=== PATIENT | female | born 1950 | race Caucasian/White ===

== ENCOUNTER 2016-11-20 10:30 | Emergency (ER) | payer OTHER ==
[~2016-11-20] VITALS: Ht 160 cm; Wt 72.8 kg
[2016-11-20 10:43] VITALS: TEMP 36.9; O2SAT 95; Ht 160 cm; Wt 72.8 kg
[2016-11-20] MEDS ORDERED: ISM20 (11:03)
[2016-11-20] MEDS ORDERED: AMLO2.5T PO (11:03)
[2016-11-20] MEDS ORDERED: AMOX250C3 PO (11:03)
[2016-11-20] MEDS ORDERED: LNX25 (11:03)
[2016-11-20] MEDS ORDERED: METO50TA16 PO (11:03)
[2016-11-20] MEDS ORDERED: DABI150C PO (11:03)
[2016-11-20] MEDS ORDERED: FURO-85 PO (11:03)
[2016-11-20] MEDS ORDERED: METH-848 PO (11:03)
[2016-11-20] MEDS ORDERED: [UNRECOGNIZED DRUG - CODE] (11:03)
[2016-11-20 11:17] LABS: BASO % 0.3 %; BASO ABS # 0.04 K/uL (0-0.2); COMPLETE YES; EOS % 1.9 %; HEMATOCRIT 44.2 % (37-47); IG% 0.2 %; LYMPH % 27.7 %; LYMPH ABS # 3.59 K/uL (1.2-3.4); MEAN CELL VOLUME 93.8 fL (80-100); MEAN CORPUSCULAR HEMOGLOBIN 31.6 pg (25-34); MEAN CORPUSCULAR HGB CONC 33.7 g/dl (32-36); MEAN PLATELET VOLUME 10.7 fL (7.4-10.4); MONO % 6.3 %; NEUT % 63.6 %; PLATELET COUNT 375 K/uL (130-400); RED BLOOD COUNT 4.71 M/uL (4.2-5.4); WHITE BLOOD COUNT 12.94 K/uL (4.8-10.8)
[2016-11-20 11:30] LABS: ALT/SGPT 39 U/L (12-78); BLOOD UREA NITROGEN 13 mg/dl (7-18); BUN/CREATININE RATIO 13.9 (10-20); CALCIUM 9.1 mg/dl (8.5-10.1); CARBON DIOXIDE 25 mmol/L (21-32); CHLORIDE 106 mmol/L (98-107); CREATININE 0.92 mg/dl (0.60-1.20); GLUCOSE 121 mg/dl (70-99); SODIUM 139 mmol/L (136-145)
--- NOTE | 2016-11-20 11:38 | DIAGNOSTIC IMAGING REPORT ---
CHEST ONE VIEW PORTABLE CLINICAL HISTORY: Short of breath. Near-syncope. COMPARISON STUDY: No previous studies for comparison. FINDINGS: Lung volumes are normal. No pneumothorax or pleural effusion is present. Patient is mildly rotated. There is borderline cardiomegaly without evidence of pulmonary edema. No consolidation is identified to suggest pneumonia. IMPRESSION: No acute cardiopulmonary findings. Electronically signed by: Frank Smith M.D. 11/20/2016 11:37 AM Dictated Date/Time: 11/20/2016 11:36 AM
[2016-11-20 11:40] LABS: ALB/GLOB RATIO 0.9 (0.9-2); ALKALINE PHOSPHATASE 98 U/L (45-117); AST/SGOT 29 U/L (15-37); CKMB/CK RATIO 1.2 (0-3.0)
--- NOTE | 2016-11-20 12:53 | EMERGENCY ROOM VISIT NOTE ---
ED Visit Note First contact with patient: 10:58 66-year-old female with syncopal episode this morning while in her dentist's office. The patient was fully evaluated by Harvey Padilla PA-C. Please see his note. I also independently evaluated the patient. The patient multiple labs, EKG and imaging performed. The patient was felt safe to return home.
[2016-11-20 13:14] LABS: URINE APPEARANCE CLOUDY (CLEAR); URINE COLOR DK YELLOW; URINE EPITHELIAL CELL AUTO >30 /lpf (0-5); URINE NITRITE NEG (NEG); URINE PH 6.5 (4.5-7.5); URINE SPECIFIC GRAVITY 1.027 (1.000-1.030); UROBILINOGEN NEG (NEG); ZZUR CULT IF INDIC CLEAN CATCH NO
[2016-11-20 13:32] LABS: URINE BILIRUBIN NEG (NEG)
[2016-11-20 14:04] LABS: MANUAL MICROSCOPIC REQUIRED? NO; REVIEW REQ? NO
[2016-11-20 14:05] LABS: INR 1.1 (0.9-1.1); PARTIAL THROMBOPLASTIN RATIO 1.3; PROTHROMBIN TIME (PATIENT) 11.8 SECONDS (9.0-12.0)
[2016-11-20 14:35] VITALS: BP 127/86; PULSE 76; O2SAT 96
--- NOTE | 2016-11-21 07:58 | EMERGENCY ROOM VISIT NOTE ---
ED Visit Note First contact with patient: 10:58 Chief Complaint: Passed out at my dentist office. History of Present Illness: Ms. Pedroza is a 66-year-old white female who is brought into the ED via ambulance accompanied by her complaining of a syncopal episode. Patient reports she's been feeling well over the last few days. Patient reports she was in the dentist office for evaluation of a possible abscess. She reports x-rays were being done and while she was standing she started feeling lightheaded and had a syncopal episode. She does not know if she actually completely passed out or just slightly collapsed. Reports from EMS says that she had a near syncopal episode. No seizure activity was noted. EMS reports when they arrived at the dentist office they reported her blood pressure was in the 70 systolic; they reported on reevaluation of her blood pressure she was never lower than 100 systolic and her blood sugars were 160. Additionally EMS reports patient was stable en route. Currently patient has no complaints and denies recent fevers, chills, sweats and currently is not experiencing any headache, dizziness, lightheadedness, abnormal neurological symptoms, neck pain, back pain, chest pain, shortness of breath, palpitations, abdominal pain, nausea, vomiting, extremity weakness/ numbness/tingling. Review of Systems: As noted above in history of present illness. All body systems were reviewed and found to be negative as noted above. Past Medical History: Atrial fibrillation, hypertension, hyperthyroidism, thyroid nodules. Current Medications: Medications Dose Route/Sig Max Daily Dose Days Date Category Dose Instructions Nasal Moisturizing Greybull (Saline) 0.65 % Spr 2 Sprays NA DAILY 11/20/16 Reported Pradaxa (Dabigatran Etexilate Mesylate) 150 Mg Cap 1 Cap PO BID 90 11/20/16 Reported Methimazole 5 Mg Tab 0.5 Tab PO MWF 11/20/16 Reported 1 tab thursday,,sat,sun Lopressor (Metoprolol Tartrate) 50 Mg Tab 1.5 Tab PO TID 30 11/20/16 Reported Norvasc (Amlodipine Besylate) 2.5 Mg Tab 2.5 Mg PO DAILY 11/20/16 Reported Isosorbide Mononitrate 20 Mg Tab 30 Mg 11/20/16 Reported Lasix (Furosemide) 20 Mg Tab 1 Tab PO DAILY 90 11/20/16 Reported Digoxin 0.25 Mg Tab 11/20/16 Reported Amoxil (Amoxicillin) 250 Mg Cap 1 Cap PO TID 7 11/20/16 Reported Allergies to Medications: Patient denies. Social History: Patient is not employed; she feels safe in her home environment ; she denies tobacco use. Physical Examination: Vital Signs: Date Time Temp Pulse Resp B/P (MAP) Pulse Ox O2 Delivery O2 Flow Rate FiO2 11/20/16 14:35 76 16 127/86 96 Room Air 11/20/16 13:27 89 11/20/16 12:30 83 21 125/72 97 Room Air 11/20/16 11:32 79 18 118/81 98 Room Air 86 139/80 92 122/88 11/20/16 10:43 95 Room Air 11/20/16 10:43 36.9 75 18 126/81 95 Room Air 11/20/16 10:42 89 GENERAL: 66-year-old female in no acute distress, nontoxic-appearing, afebrile and hemodynamically stable. NEUROLOGICAL: Awake, alert and oriented to person, place and time. Answering questions appropriately and following commands. Normal gait. Good hand eye coordination. No focal motor or sensory deficits. Cranial nerves II through XII grossly intact. Good short-term and long-term recall. Negative pronator drift test. Able to spell and count backwards. Normal rapid alternate movements of the hands. Normal heel and test. SKIN: Warm, dry and pink. No soft tissue eruptions or trauma noted. HEENT: Atraumatic and normocephalic. PERRLA. EOMI without nystagmus Sclera white and conjunctiva pink. Tympanic membranes appear normal with normal renal reflex. The right mandible patient has some mild swelling but no erythema related to her dental abscess. Oral cavity moist and pink. Airway is patent. Decaying tooth over the right mandible. Pharynx is nonerythematous or edematous. Speech normal. No lymphadenopathy. Trachea midline. No jugular venous distention. BACK: No tenderness over the bony spine. No CVA tenderness. THORAX: Lungs sounds are clear to auscultation and equal bilaterally with symmetrical chest wall. No wheezing, rales or rhonchi. No crepitus, tenderness , subcutaneous air or deformities noted. HEART: Regular rate and rhythm. No gallops, rubs or murmurs are appreciated. ABDOMEN: Flat, soft and nontender. Positive bowel sounds in all quadrants. No guarding, rigidity or organomegaly. EXTREMITIES: Moves all extremities well on command and with purpose. All distal neurovascular statuses are intact and equal bilaterally. No calf tenderness or cords. ED Course: Patient is assessed as noted above. Patient's medication list was reviewed. Laboratory Testing: Test 11/20/16 10:20 11/20/16 12:39 11/20/16 13:09 Range/Units White Blood Count 12.94 4.8-10.8 K/uL Red Blood Count 4.71 4.2-5.4 M/uL Hemoglobin 14.9 12.0-16.0 g/dL Hematocrit 44.2 37-47 % Mean Corpuscular Volume 93.8 80-100 fL Mean Corpuscular Hemoglobin 31.6 25-34 pg Mean Corpuscular Hemoglobin Concent 33.7 32-36 g/dl Platelet Count 375 130-400 K/uL Mean Platelet Volume 10.7 7.4-10.4 fL Neutrophils (%) (Auto) 63.6 % Lymphocytes (%) (Auto) 27.7 % Monocytes (%) (Auto) 6.3 % Eosinophils (%) (Auto) 1.9 % Basophils (%) (Auto) 0.3 % Neutrophils # (Auto) 8.21 1.4-6.5 K/uL Lymphocytes # (Auto) 3.59 1.2-3.4 K/uL Monocytes # (Auto) 0.82 0.11-0.59 K/uL Eosinophils # (Auto) 0.25 0-0.5 K/uL Basophils # (Auto) 0.04 0-0.2 K/uL RDW Standard Deviation 47.6 36.4-46.3 fL RDW Coefficient of Variation 13.8 11.5-14.5 % Immature Granulocyte % (Auto) 0.2 % Immature Granulocyte # (Auto) 0.03 0.00-0.02 K/uL Sodium Level 139 136-145 mmol/L Potassium Level 4.0 3.5-5.1 mmol/L Chloride Level 106 98-107 mmol/L Carbon Dioxide Level 25 21-32 mmol/L Anion Gap 8.0 3-11 mmol/L Blood Urea Nitrogen 13 7-18 mg/dl Creatinine 0.92 0.60-1.20 mg/dl Est Creatinine Clear Calc Drug Dose 57.5 ml/min Estimated GFR () 75.2 Estimated GFR (Non- 64.9 BUN/Creatinine Ratio 13.9 10-20 Random Glucose 121 70-99 mg/dl Calcium Level 9.1 8.5-10.1 mg/dl Total Bilirubin 1.3 0.2-1 mg/dl Aspartate Amino Transf (AST/SGOT) 29 15-37 U/L Alanine Aminotransferase (ALT/SGPT) 39 12-78 U/L Alkaline Phosphatase 98 45-117 U/L Total Creatine Kinase 89 26-192 U/L Creatine Kinase MB 1.1 0.5-3.6 ng/ml Creatine Kinase MB Ratio 1.2 0-3.0 Troponin I < 0.015 0-0.045 ng/ml Total Protein 7.6 6.4-8.2 gm/dl Albumin 3.6 3.4-5.0 gm/dl Globulin 4.0 2.5-4.0 gm/dl Albumin/Globulin Ratio 0.9 0.9-2 Thyroid Stimulating Hormone (TSH) 6.070 0.300-4.500 uIu/ml Urine Color DK YELLOW Urine Appearance CLOUDY CLEAR Urine pH 6.5 4.5-7.5 Urine Specific Renner 1.027 1.000-1.030 Urine Protein 2+ NEG Urine Glucose (UA) NEG NEG Urine Ketones TRACE NEG Urine Occult Blood 1+ NEG Urine Nitrite NEG NEG Urine Bilirubin NEG NEG Urine Urobilinogen NEG NEG Urine Leukocyte Esterase SMALL NEG Urine WBC (Auto) 5-10 0-5 /hpf Urine RBC (Auto) >30 0-4 /hpf Urine Hyaline Casts (Auto) 5-10 0-5 /lpf Urine Epithelial Cells (Auto) >30 0-5 /lpf Urine Bacteria (Auto) NEG NEG Prothrombin Time 11.8 9.0-12.0 SECONDS Prothromb Time International Ratio 1.1 0.9-1.1 Activated Partial Thromboplast Time 32.9 21.0-31.0 SECONDS Partial Thromboplastin Ratio 1.3 EKG: Was read by myself and reviewed with Dr. Dasilva; shows atrial fibrillation with a controlled ventricular response of 73 bpm. No acute ischemic changes. Medical records were reviewed and no previous EKGs were available for comparison. Orthostatic vital signs are not diagnostic. Chest X-Rays: Were read by myself and the radiologist and shows no acute infiltrates, effusions or pneumothorax. Borderline heart silhouette and no bony abnormalities. Patient was reassessed multiple times to her stay in the emergency department. Patient's case was reviewed with Dr. Dasilva; inability assessed the patient we agreed on diagnostic approach, treatment, disposition and plan. Patient was educated about today's findings and instructed on her treatment plan ; she verbalizes understanding and agreement with this plan. Clinical Impression: Syncope. Decision-Making: Initially my differential diagnosis I considered arrhythmia, vasovagal syncope, syncope from other causes, sepsis and other causes. Disposition: Patient was discharged home in stable condition accompanied by her ; prior to departure she was reassessed and subjectively reported that she was symptom-free. Plan: Patient was encouraged to continue her current medications as prescribed. Patient was encouraged to stay well-hydrated. Patient was encouraged to down immediately for any lightheadedness. Patient was encouraged to contact her family physician and request follow-up care and treatment and reevaluation of today's situation but also review her thyroid testing. Patient was encouraged return the ED for any uncontrolled pain, any additional episodes of syncope, chest pain, shortness of breath, fevers or any new/ concerning symptoms.
== END 2016-11-20 14:38 | disposition home or self-care (01) ==
LOC: EDBD 10:30 → C.EDC 10:31
DX: R55 Syncope and collapse (principal); I48.91 Unspecified atrial fibrillation; I10 Essential (primary) hypertension; E05.90 Thyrotoxicosis, unspecified without thyrotoxic crisis or storm; E04.1 Nontoxic single thyroid nodule; Z79.899 Other long term (current) drug therapy

== ENCOUNTER 2021-05-21 10:14 | Inpatient (IN) ==
[2021-05-21 10:45] LABS: Basophils # (auto) 0.03 K/uL (0-0.2); Basophils % (auto) 0.3 %; Eosinophils # (auto) 0.19 K/uL (0-0.5); Eosinophils % (auto) 1.7 %; Hematocrit (blood only) 42.3 % (37-47); Hemoglobin 14.7 g/dL (12.0-16.0); Immature Granulocytes # (auto) 0.02 K/uL (0.00-0.02); Immature Granulocytes % (auto) 0.2 %; Lymphocytes # (auto) 4.41 K/uL (1.2-3.4); Lymphocytes % (auto) 38.7 %; Mean Corpuscular Hemoglobin 31.7 pg (25-34); Mean Corpuscular Hgb Conc 34.8 g/dL (32-36); Mean Corpuscular Volume 91.4 fL (80-100); Mean Platelet Volume 9.7 fL (7.4-10.4); Monocytes % (auto) 7.9 %; Neutrophils # (auto) 5.84 K/uL (1.4-6.5); Neutrophils % (auto) 51.2 %; Platelet Count 375 K/uL (130-400); RDW Coefficient of Variation 14.6 % (11.5-14.5); RDW Standard Deviation 49.1 fL (36.4-46.3); Red Blood Count 4.63 M/uL (4.2-5.4); White Blood Count 11.39 K/uL (4.8-10.8)
[2021-05-21] MEDS: METOPROLOL TARTRATE 1 MG/ML VIAL IV PRN ×3 (10:45→11:43)
[2021-05-21 11:04] LABS: Alanine Aminotransferase 22 U/L (7-52); Albumin Globulin Ratio 1.3 (0.9-2); Albumin Level 4.1 gm/dl (3.4-5.0); Alkaline Phosphatase 78 U/L (34-104); Anion Gap 8 (3-11); Aspartate Aminotransferase 22 U/L (13-39); BUN Creatinine Ratio 24.4 (10-20); Bilirubin,Total 1.6 mg/dl (0.2-1.0); Blood Urea Nitrogen 20 mg/dl (6-23); Calcium 9.5 mg/dl (8.5-10.1); Carbon Dioxide 28 mmol/L (21-32); Chloride 104 mmol/L (98-107); Est GFR (African American) 83.4 ml/min; Globulin 3.2 gm/dl (2.5-4.0); Glucose 96 mg/dl (70-99(Fasting)); Magnesium 1.8 mg/dl (1.7-2.4); Potassium 3.5 mmol/L (3.5-5.1); Sodium 140 mmol/L (136-145); Total Protein 7.3 gm/dl (6.0-8.3)
[2021-05-21 11:06] LABS: Troponin I < 0.03 ng/ml (0-0.04)
[2021-05-21] MEDS ORDERED: SOTALOL HCL 80 MG TAB PO STA (12:52)
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
--- NOTE | 2021-05-21 13:29 | Electrocardiogram Report ---
Test Reason : Blood Pressure : / mmHG Vent. Rate : 109 BPM Atrial Rate : 127 BPM P-R Int : 000 ms QRS Dur : 088 ms QT Int : 342 ms P-R-T Axes : 000 048 113 degrees QTc Int : 460 ms Atrial fibrillation with rapid ventricular response Nonspecific T wave abnormality Abnormal ECG When compared with ECG of 16-MAY-2021 07:55, Atrial fibrillation has replaced Sinus rhythm Confirmed by Eddi Cherry ([id number]) on 05/21/2021 1:29:22 PM Referred By: ED Confirmed By:Eddi Cherry
[2021-05-21] MEDS ORDERED: ACETAMINOPHEN 325 MG TAB PO PRN (13:55)
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
[2021-05-21] MEDS ORDERED: POTASSIUM CHLORIDE CRTAB 20 MEQ TABCR PO ONE (14:24)
[2021-05-21] MEDS: FUROSEMIDE 40 MG TAB PO SCH (15:15)
[2021-05-21] MEDS: ROSUVASTATIN CALCIUM 20 MG TAB PO SCH (21:49)
[2021-05-21] MEDS: EZETIMIBE 10 MG TABLET PO SCH (21:49)
[2021-05-21] MEDS: SOTALOL HCL 80 MG TAB PO SCH (21:49)
[2021-05-21] MEDS: APIXABAN 5 MG TABLET PO SCH (21:49)
--- NOTE | 2021-05-22 08:29 | Cardiology Progress Note ---
Date of Service May 22, 2021 Assessment & Plan (1) Atrial fibrillation: (2) CAD (coronary artery disease): (3) Hypertension: Plan: Patient is a 71-year-old female with underlying ischemic heart disease and paroxysmal atrial fibrillation poorly tolerated due to elevated rate. Synchronized electrical cardioversion was only briefly successful with return to atrial fibrillation. Atrial flutter today on EKG. QTC mildly prolonged, however could be over estimated due to atrial flutter. Patient is symptomatic with fatigue and dyspnea. Plan: Continue antiarrhythmic therapy initiating sotalol 80 mg twice per day. Continue to hold metoprolol, supplement potassium/magnesium and follow telemetry and serial EKGs. If no spontaneous conversion to sinus rhythm consider repeat synchronized electrical cardioversion 05/23/2021- patient agreeable. Case discussed with Dr. Golden Admission and Anticipated Discharge Date Admission Date: May 21, 2021 Supervising Physician Co-Signing Physician Notes Seen and examined, chart, medications, telemetry reviewed Atrial fibrillation, no symptoms. Plan as above synchronized electrical cardioversion in a.m., supplement potassium today Subjective Chart reviewed. Patient represents in atrial fibrillation having undergone syn chronized electrical cardioversion last week initially successfully. Patient notes approximately 2 days post cardioversion having gone back into atrial fibrillation by sense of tachy-palpitations and irregular heartbeat.Yesterday- started sotalol, she remains in atrial flutter with a heart rate in the 100s. Potassium low normal at 3.5, was supplemented with 40 meq of KCL. Now 3.9. Mag 1.8, renal function stable. Tele: Aflutter 90-110s Upon entrance into the room patient was sitting up in the chair. Notes that she feels very fatigued and "run down". She notes that she gets easily winded when she is in atrial fib. No chest pain. Does note mild tachy-palpitations at times. No dizziness, syncope or near syncope. No orthopnea, PND, or increased lower extremity edema. No fever, chills, cough, hematochezia, melena, or hemoptysis. Review of Systems Review of Systems: All systems reviewed & are unremarkable except as noted in HPI & below Physical Exam Physical Exam: General: No acute distress. A+Ox3. HEENT: Normocephalic. Atraumatic. Conjunctiva and sclera clear. NECK: No carotid bruits. No JVD. Carotid upstrokes are brisk. Heart: RRR. S1 and S2 noted without murmur, rubs, gallops. PMI non displaced. Lungs: Clear to auscultation. No wheezes, rhonchi, rales. Abdomen: Normal bowel sounds. Soft. Nontender. No masses or organomegaly. No abdominal bruits. Extremities: No edema. No clubbing or cyanosis. Pulses: radial=2/4, posterior tibial=2/4, dorsalis pedis = 2/4. NEURO: No focal deficits. PSYCH: Normal. Results & Data ([facility]) Vital Signs (Past 12 Hours) Vital Signs Temp Pulse Pulse Resp BP Pulse Ox 05/22/21 07:29 36.4 C L 113 H 20 119/84 93 05/22/21 07:24 106 H 05/22/21 03:14 36.7 C 122 H 20 112/76 96 05/21/21 23:20 113 H 05/21/21 23:11 36.7 C 112 H 20 126/91 92 Laboratory Results 05/21/21 05/21/21 05/21/21 Range/Units 12:16 10:35 10:35 WBC (4.8-10.8) K/uL RBC (4.2-5.4) M/uL Hgb (12.0-16.0) g/dL Hct (37-47) % MCV (80-100) fL MCH (25-34) pg MCHC (32-36) g/dL RDW Std Deviation (36.4-46.3) fL RDW Coeff of Anatoly (11.5-14.5) % Plt Count (130-400) K/uL MPV (7.4-10.4) fL Immature Gran % (Auto) % Neut % (Auto) % Lymph % (Auto) % [place] % (Auto) % Eos % (Auto) % Baso % (Auto) % Neut # (Auto) (1.4-6.5) K/uL Lymph # (Auto) (1.2-3.4) K/uL [place] # (Auto) (0.11-0.59) K/uL Eos # (Auto) (0-0.5) K/uL Baso # (Auto) (0-0.2) K/uL Immature Gran # (Auto) (0.00-0.02) K/uL Sodium 140 (136-145) mmol/L Potassium 3.5 (3.5-5.1) mmol/L Chloride 104 (98-107) mmol/L Carbon Dioxide 28 (21-32) mmol/L Anion Gap 8 (3-11) BUN 20 (6-23) mg/dl Creatinine 0.82 (0.6-1.2) mg/dl Est Cr Clr Drug Dosing 62.0 ml/min Est GFR ( Amer) 83.4 ml/min Est GFR (Non-Af Amer) 72.0 ml/min BUN/Creatinine Ratio 24.4 H (10-20) Glucose 96 (70-99(Fasting)) mg/dl Calcium 9.5 (8.5-10.1) mg/dl Magnesium 1.8 (1.7-2.4) mg/dl Total Bilirubin 1.6 H (0.2-1.0) mg/dl AST 22 (13-39) U/L ALT 22 (7-52) U/L Alkaline Phosphatase 78 (34-104) U/L Troponin I < 0.03 (0-0.04) ng/ml Total Protein 7.3 (6.0-8.3) gm/dl Albumin 4.1 (3.4-5.0) gm/dl Globulin 3.2 (2.5-4.0) gm/dl Albumin/Globulin Ratio 1.3 (0.9-2) TSH 0.968 (0.300-4.500) uIu/ml SARS-CoV-2, RNA, NAAT NEGATIVE (NEGATIVE) 05/21/21 Range/Units 10:35 WBC 11.39 H (4.8-10.8) K/uL RBC 4.63 (4.2-5.4) M/uL Hgb 14.7 (12.0-16.0) g/dL Hct 42.3 (37-47) % MCV 91.4 (80-100) fL MCH 31.7 (25-34) pg MCHC 34.8 (32-36) g/dL RDW Std Deviation 49.1 H (36.4-46.3) fL RDW Coeff of Anatoly 14.6 H (11.5-14.5) % Plt Count 375 (130-400) K/uL MPV 9.7 (7.4-10.4) fL Immature Gran % (Auto) 0.2 % Neut % (Auto) 51.2 % Lymph % (Auto) 38.7 % [place] % (Auto) 7.9 % Eos % (Auto) 1.7 % Baso % (Auto) 0.3 % Neut # (Auto) 5.84 (1.4-6.5) K/uL Lymph # (Auto) 4.41 H (1.2-3.4) K/uL [place] # (Auto) 0.90 H (0.11-0.59) K/uL Eos # (Auto) 0.19 (0-0.5) K/uL Baso # (Auto) 0.03 (0-0.2) K/uL Immature Gran # (Auto) 0.02 (0.00-0.02) K/uL Sodium (136-145) mmol/L Potassium (3.5-5.1) mmol/L Chloride (98-107) mmol/L Carbon Dioxide (21-32) mmol/L Anion Gap (3-11) BUN (6-23) mg/dl Creatinine (0.6-1.2) mg/dl Est Cr Clr Drug Dosing ml/min Est GFR ( Amer) ml/min Est GFR (Non-Af Amer) ml/min BUN/Creatinine Ratio (10-20) Glucose (70-99(Fasting)) mg/dl Calcium (8.5-10.1) mg/dl Magnesium (1.7-2.4) mg/dl Total Bilirubin (0.2-1.0) mg/dl AST (13-39) U/L ALT (7-52) U/L Alkaline Phosphatase (34-104) U/L Troponin I (0-0.04) ng/ml Total Protein (6.0-8.3) gm/dl Albumin (3.4-5.0) gm/dl Globulin (2.5-4.0) gm/dl Albumin/Globulin Ratio (0.9-2) TSH (0.300-4.500) uIu/ml SARS-CoV-2, RNA, NAAT (NEGATIVE) Diagnostic Findings Echo at [facility] 02/2021 LVEF 60-64% mild LVH LA mod enlarged Mild MR and TR
[2021-05-22] MEDS ORDERED: MAGNESIUM OXIDE 400 MG TAB PO ONE (08:32)
[2021-05-22] MEDS ORDERED: LOSARTAN POTASSIUM 25 MG TAB PO SCH (09:00)
[2021-05-22] MEDS: APIXABAN 5 MG TABLET PO SCH ×2 (09:13→19:56)
[2021-05-22] MEDS: FUROSEMIDE 40 MG TAB PO SCH (09:13)
[2021-05-22] MEDS: SOTALOL HCL 80 MG TAB PO SCH ×2 (09:13→19:57)
[2021-05-22] MEDS: PANTOprazole 40 MG TAB PO SCH (09:13)
[2021-05-22] MEDS: ASPIRIN 81 MG ECTAB PO SCH (09:14)
[2021-05-22 09:35] LABS: BUN Creatinine Ratio 27.2 (10-20); Calcium 8.8 mg/dl (8.5-10.1); Creatinine Clr Calc Pharmacy 62.5 ml/min; Est GFR (African American) 84.7 ml/min; Est GFR (Non-African American) 73.1 ml/min; Potassium 3.9 mmol/L (3.5-5.1)
[2021-05-22] MEDS ORDERED: POTASSIUM CHLORIDE CRTAB 20 MEQ TABCR PO ONE (13:49)
--- NOTE | 2021-05-22 15:46 | Electrocardiogram Report ---
Test Reason : Blood Pressure : / mmHG Vent. Rate : 107 BPM Atrial Rate : 288 BPM P-R Int : 000 ms QRS Dur : 080 ms QT Int : 384 ms P-R-T Axes : 000 046 131 degrees QTc Int : 512 ms Atrial fibrillation Nonspecific T wave abnormality Abnormal ECG When compared with ECG of 21-MAY-2021 15:00, (unconfirmed) Nonspecific T wave abnormality has replaced inverted T waves in Lateral leads Confirmed by Eddi Cherry ([id number]) on 05/22/2021 3:46:07 PM Referred By: REFERRED SELF Confirmed By:Eddi Cherry
--- NOTE | 2021-05-22 15:46 | Electrocardiogram Report ---
Test Reason : Blood Pressure : / mmHG Vent. Rate : 103 BPM Atrial Rate : 357 BPM P-R Int : 000 ms QRS Dur : 090 ms QT Int : 364 ms P-R-T Axes : 000 050 162 degrees QTc Int : 476 ms Atrial fibrillation with rapid ventricular response Abnormal ECG When compared with ECG of 21-MAY-2021 10:26, T wave inversion now evident in Lateral leads Confirmed by Eddi Cherry ([id number]) on 05/22/2021 3:46:36 PM Referred By: REFERRED SELF Confirmed By:Eddi Cherry
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
--- NOTE | 2021-05-22 16:03 | Hospitalist Progress Note ---
Date of Service May 22, 2021 Assessment & Plan (1) Atrial fibrillation: Plan: Recurrent atrial fibrillation Patient with history of atrial fibrillation s/p cardioversion on 05/16. Patient previously on digoxin which was discontinued post cardioversion and metoprolol reduced from 100 mg BID to 50mg BID. Presents today with 4 days of anxiety and jitteriness. Found to be in atrial fibrillation with heart rates in the low 100. Electrolytes and TSH acceptable. Evaluated by cardiology, recommending sotalol initiation. Start sotalol 80 mg BID Continue Eliquis EKG 2 hours after first sotalol dose and daily Heart rate has been around 100 210 and in a flutter without any symptom We will continue to monitor-monitor electrolytes as well (2) CAD (coronary artery disease): Plan: Appears stable Continue ASA and statin, holding beta-aisha for now while initiating sotalol (3) Hypertension: Plan: BP controlled, continue losartan and furosemide Blood pressure remains stable at lower end (4) DVT prophylaxis: Plan: On Eliquis Admission and Anticipated Discharge Date Admission Date: May 21, 2021 Subjective 05/22/2021 Patient was seen and examined in telemetry unit She has been feeling much better and denies any symptoms Denies any palpitation, chest pain or shortness of breath Review of Systems Review of Systems: All systems reviewed and are unremarkable except as noted below Respiratory: No shortness of breath at rest Cardiovascular: Additional Comments: No palpitation and no chest pain Physical Exam Physical Exam: Sitting on a chair without any acute distress Constitutional: well developed, well nourished and + obese; not ill appearing Eyes: PERRL, conjunctivae normal, anicteric sclerae ENMT: external ear and nose normal, oropharynx normal Neck: trachea midline, no thyromegaly Respiratory: no respiratory distress Auscultation: lungs clear to auscultation bilaterally Cardiovascular: Rate/Rhythm: + irregularly irregular Heart Sounds: normal S1 and normal S2; no murmur Extremities: + edema (Trace edema bilaterally) Gastrointestinal (Abdomen): Inspection/Auscultation: normal bowel sounds; abdomen not distended Percussion/Palpation: abdomen soft; abdomen nontender Musculoskeletal: No acute arthritis in any joint Neurologic: Alert, awake and oriented x3. No focal sensory or no motor deficit appreciated Results & Data Results & Data ([facility]) Vital Signs (Past 12 Hours) Vital Signs Temp Pulse Pulse Resp BP Pulse Ox 05/22/21 15:46 36.5 C 110 H 17 98/68 L 95 05/22/21 11:26 94/65 L 05/22/21 11:22 36.6 C 90 18 89/56 L 92 05/22/21 07:29 36.4 C L 113 H 20 119/84 93 05/22/21 07:24 106 H Laboratory Results BMP 05/22/21 08:52 Sodium 139 Potassium 3.9 Chloride 105 Carbon Dioxide 26 BUN 22 Creatinine 0.81 Glucose 166 H Calcium 8.8 Medications Administered Current Inpatient Medications Acetaminophen (Acetaminophen 325 Mg Tab) 650 mg PO Q4H PRN PRN Reason: Pain or Fever Stop: 06/20/21 13:54 Apixaban (Apixaban 5 Mg Tablet) 5 mg PO BID [facility] Stop: 06/20/21 20:59 Last Admin: 05/22/21 09:13 Dose: 5 mg Documented by: Aspirin (A[facility] 81 Mg Ectab) [facility] Stop: 06/21/21 08:59 Last Admin: 05/22/21 09:14 Dose: 81 mg Documented by: Ezetimibe (Ezetimibe 10 Mg Tablet) 10 mg PO QPM [facility] Stop: 06/20/21 20:59 Last Admin: 05/21/21 21:49 Dose: 10 mg Documented by: Furosemide (Furosemide 40 Mg Tab) 40 mg PO QAM [facility] Stop: 06/20/21 14:29 Last Admin: 05/22/21 09:13 Dose: 40 mg Documented by: Losartan Potassium (Losartan Potassium 25 Mg Tab) [facility] Stop: 06/21/21 08:59 Last Admin: 05/22/21 09:14 Dose: 25 mg Documented by: Pantoprazole Sodium (Pantoprazole 40 Mg Tab) [facility] Stop: 06/21/21 08:59 Last Admin: 05/22/21 09:13 Dose: 40 mg Documented by: Rosuvastatin Calcium (Rosuvastatin Calcium 20 Mg Tab) 20 mg PO [facility] Stop: 06/20/21 20:59 Last Admin: 05/21/21 21:49 Dose: 20 mg Documented by: Sotalol HCl (Sotalol Hcl 80 Mg Tab) 80 mg PO BID [facility] Stop: 06/20/21 20:59 Last Admin: 05/22/21 09:13 Dose: 80 mg Documented by:
[2021-05-22] MEDS: EZETIMIBE 10 MG TABLET PO SCH (19:56)
[2021-05-22] MEDS: ROSUVASTATIN CALCIUM 20 MG TAB PO SCH (19:56)
[2021-05-23 06:19] LABS: BUN Creatinine Ratio 30.8 (10-20); Calcium 9.4 mg/dl (8.5-10.1); Est GFR (African American) 88.6 ml/min; Est GFR (Non-African American) 76.5 ml/min; Phosphorus 3.6 mg/dl (2.5-4.9); Potassium 4.1 mmol/L (3.5-5.1)
--- NOTE | 2021-05-23 07:29 | Cardioversion ---
Date of Service May 23, 2021 Electrical Cardioversion Rpt Electrical Cardioversion Report Patient was seen and examined. Procedure and risks of synchronized electrical crdioversion explained in detail, informed consent obtained. After formal TIMEOUT, patient was sedated via anesthesia consult with continous HR, BP O2 and endtidal Co2 monitoring. Single 200J biphasic synchronized cardioversion performed with successful conversion to sinus. Patient aroused having tolerated well. EKG NSR at 68 bpm, QTc 482
--- NOTE | 2021-05-23 07:31 | Anesthesiology Progress Note ---
Date of Service May 23, 2021 Anesthesia Post Procedure Vital Signs Vital Signs: Temp Pulse Pulse Resp BP Pulse Ox 05/23/21 07:17 104 H 18 133/96 95 05/23/21 06:57 36.4 C L 107 H 19 120/84 96 05/23/21 03:03 36.6 C 100 H 14 107/76 96 05/22/21 23:29 36.8 C 100 H 18 122/87 951 H 05/22/21 23:04 113 H 05/22/21 19:08 36.7 C 114 H 20 94/65 L 96 05/22/21 15:46 36.5 C 110 H 17 98/68 L 95 05/22/21 11:26 94/65 L 05/22/21 11:22 36.6 C 90 18 89/56 L 92 Transfer of Care Handoff Completed per policy Notes Mental Status: alert / awake / arousable Patient Amnestic to Procedure: Yes Nausea / Vomiting: adequately controlled Pain: adequately controlled Airway Patency, RR, SpO2: stable & adequate BP & HR: stable & adequate Hydration State: stable & adequate Anesthetic Complications: no major complications apparent
--- NOTE | 2021-05-23 07:58 | Cardiology Progress Note ---
Date of Service May 23, 2021 Assessment & Plan (1) Atrial fibrillation: (2) CAD (coronary artery disease): (3) Hypertension: Plan: Patient is a 71-year-old female with underlying ischemic heart disease and paroxysmal atrial fibrillation poorly tolerated due to elevated rate. Synchronized electrical cardioversion was only briefly successful with return to atrial fibrillation. Atrial flutter today on EKG. QTC mildly prolonged, however could be over estimated due to atrial flutter. Patient was symptomatic with fatigue and dyspnea. Plan: S/p successful DCCV to NSR this am with stable QTc. Continue antiarrhythmic therapy with sotalol 80 mg twice per day. Continue Eliquis 5 mg BID. Continue to hold metoprolol, supplement potassium/magnesium and follow telemetry and serial EKGs. Plans for discharge tomorrow. Anticipate outpatient cardiology follow up in about 4 weeks. Case discussed with Dr. Golden. Admission and Anticipated Discharge Date Admission Date: May 21, 2021 Supervising Physician Co-Signing Physician Notes Patient seen and examined both prior to and after synchronized electrical cardio version. Had successful return to sinus rhythm no significant prolongation of QT interval. Continue sotalol 80 mg twice per day and anticoagulation with Eliquis. Discontinue metoprolol We will resume losartan Hold furosemide today Telemetry until tomorrow morning with anticipated discharge in a.m. if EKG stable Subjective Chart reviewed. Patient represents in atrial fibrillation having undergone synchronized electrical cardioversion last week initially successfully. Patient notes approximately 2 days post cardioversion having gone back into atrial fibrillation by sense of tachy-palpitations and irregular heartbeat.Yesterday- started sotalol, she remained in atrial flutter with a heart rate in the 100s. Underwent DCCV this am with Dr. Golden. x1 200 j biphasic synchronized cardioversion performed with successful cardioversion to NSR. Post EKG showed NSR 68 bpm, QTc 482 ms. Potassium normal at 4.1. Mag 2.0 Tele: SR 60-70s Upon entrance into the room patient was resting comfortably in bed. Notes some fatigue but does feel improved. No chest pain, shortness of breath or palpitations. No dizziness, syncope or near syncope. No orthopnea, PND, or increased lower extremity edema. No fever, chills, cough, hematochezia, melena, or hemoptysis. Review of Systems Review of Systems: All systems reviewed & are unremarkable except as noted in HPI & below Physical Exam Physical Exam: General: No acute distress. A+Ox3. HEENT: Normocephalic. Atraumatic. Conjunctiva and sclera clear. NECK: No carotid bruits. No JVD. Carotid upstrokes are brisk. Heart: RRR. S1 and S2 noted without murmur, rubs, gallops. PMI non displaced. Lungs: Clear to auscultation. No wheezes, rhonchi, rales. Abdomen: Normal bowel sounds. Soft. Nontender. No masses or organomegaly. No abdominal bruits. Extremities: No edema. No clubbing or cyanosis. Pulses: radial=2/4, posterior tibial=2/4, dorsalis pedis = 2/4. NEURO: No focal deficits. PSYCH: Normal. Results & Data ([facility]) Vital Signs (Past 12 Hours) Vital Signs Temp Pulse Pulse Resp BP Pulse Ox 05/23/21 07:40 69 18 92/67 L 93 05/23/21 07:25 68 18 101/58 L 92 05/23/21 07:17 104 H 18 133/96 95 05/23/21 06:57 36.4 C L 107 H 19 120/84 96 05/23/21 03:03 36.6 C 100 H 14 107/76 96 05/22/21 23:29 36.8 C 100 H 18 122/87 951 H 05/22/21 23:04 113 H Laboratory Results 05/23/21 Range/Units 05:32 Sodium 140 (136-145) mmol/L Potassium 4.1 (3.5-5.1) mmol/L Chloride 108 H (98-107) mmol/L Carbon Dioxide 25 (21-32) mmol/L Anion Gap 7 (3-11) BUN 24 H (6-23) mg/dl Creatinine 0.78 (0.6-1.2) mg/dl Est Cr Clr Drug Dosing 65.0 ml/min Est GFR ( Amer) 88.6 ml/min Est GFR (Non-Af Amer) 76.5 ml/min BUN/Creatinine Ratio 30.8 H (10-20) Glucose 105 H (70-99(Fasting)) mg/dl Calcium 9.4 (8.5-10.1) mg/dl Phosphorus 3.6 (2.5-4.9) mg/dl Magnesium 2.0 (1.7-2.4) mg/dl
[2021-05-23] MEDS: APIXABAN 5 MG TABLET PO SCH ×2 (08:31→20:36)
[2021-05-23] MEDS: ASPIRIN 81 MG ECTAB PO SCH (08:31)
[2021-05-23] MEDS: PANTOprazole 40 MG TAB PO SCH (08:31)
[2021-05-23] MEDS: SOTALOL HCL 80 MG TAB PO SCH ×2 (09:23→20:35)
--- NOTE | 2021-05-23 16:13 | Hospitalist Progress Note ---
Date of Service May 23, 2021 Assessment & Plan (1) Atrial fibrillation: Plan: Recurrent atrial fibrillation Patient with history of atrial fibrillation s/p cardioversion on 05/16. Patient previously on digoxin which was discontinued post cardioversion and metoprolol reduced from 100 mg BID to 50mg BID. Presents today with 4 days of anxiety and jitteriness. Found to be in atrial fibrillation with heart rates in the low 100. Electrolytes and TSH acceptable. Evaluated by cardiology, recommending sotalol initiation. Start sotalol 80 mg BID Continue Eliquis EKG 2 hours after first sotalol dose and daily Heart rate has been around 100- 210 and in a flutter without any symptom We will continue to monitor-monitor electrolytes as well Status post cardioversion Remains in sinus rhythm at 70/min Continue sotalol likely home tomorrow (2) CAD (coronary artery disease): Plan: Appears stable Continue ASA and statin, holding beta-aisha for now while initiating sotalol (3) Hypertension: Plan: BP controlled, continue losartan and furosemide Blood pressure remains stable at lower end (4) DVT prophylaxis: Plan: On Eliquis Admission and Anticipated Discharge Date Admission Date: May 21, 2021 Subjective 05/22/2021 Patient was seen and examined in telemetry unit She has been feeling much better and denies any symptoms Denies any palpitation, chest pain or shortness of breath 05/23/2021 The patient was seen and examined in telemetry unit She is a status post cardioversion on sotalol Heart rate is controlled at 70/min and in sinus rhythm Denies any symptoms Review of Systems Review of Systems: All systems reviewed and are unremarkable except as noted below Physical Exam Physical Exam: Sitting on a chair without any acute distress Constitutional: well developed, well nourished and + obese; not ill appearing Eyes: PERRL, conjunctivae normal, anicteric sclerae ENMT: external ear and nose normal, oropharynx normal Neck: trachea midline, no thyromegaly Respiratory: no respiratory distress Auscultation: lungs clear to auscultation bilaterally Cardiovascular: Rate/Rhythm: + irregularly irregular Heart Sounds: normal S1 and normal S2; no murmur Extremities: + edema (Trace edema bilaterally) Gastrointestinal (Abdomen): Inspection/Auscultation: normal bowel sounds; abdomen not distended Percussion/Palpation: abdomen soft; abdomen nontender Musculoskeletal: No acute arthritis in any joint Neurologic: Alert, awake and oriented x3. No focal sensory or no motor defi cit appreciated. Results & Data Results & Data ([facility]) Vital Signs (Past 12 Hours) Vital Signs Temp Pulse Pulse Resp BP Pulse Ox 05/23/21 15:10 36.7 C 70 18 107/71 96 05/23/21 14:54 64 05/23/21 11:02 36.8 C 67 19 93/56 L 94 05/23/21 10:07 36.4 C L 74 20 104/69 95 05/23/21 09:37 37.0 C 71 22 109/71 93 05/23/21 09:07 76 120/74 93 05/23/21 08:52 75 132/78 92 05/23/21 08:37 36.2 C L 68 107/67 93 05/23/21 08:22 36.4 C L 68 22 125/79 93 05/23/21 07:55 66 18 106/65 93 05/23/21 07:40 69 18 92/67 L 93 05/23/21 07:25 68 18 101/58 L 92 05/23/21 07:17 104 H 18 133/96 95 05/23/21 06:57 36.4 C L 107 H 19 120/84 96 05/23/21 06:20 95 H Laboratory Results [facility] 05/23/21 05:32 Sodium 140 Potassium 4.1 Chloride 108 H Carbon Dioxide 25 BUN 24 H Creatinine 0.78 Glucose 105 H Calcium 9.4 Medications Administered Current Inpatient Medications Acetaminophen (Acetaminophen 325 Mg Tab) 650 mg PO Q4H PRN PRN Reason: Pain or Fever Stop: 06/20/21 13:54 Apixaban (Apixaban 5 Mg Tablet) 5 mg PO BID [facility] Stop: 06/20/21 20:59 Last Admin: 05/23/21 08:31 Dose: 5 mg Documented by: Aspirin (Aspirin 81 Mg Ectab) 81 mg PO QAM [facility] Stop: 06/21/21 08:59 Last Admin: 05/23/21 08:31 Dose: 81 mg Documented by: Ezetimibe (Ezetimibe 10 Mg Tablet) 10 mg PO QPM [facility] Stop: 06/20/21 20:59 Last Admin: 05/22/21 19:56 Dose: 10 mg Documented by: Furosemide (Furosemide 40 Mg Tab) 40 mg PO QAM [facility] Stop: 06/20/21 14:29 Last Admin: 05/22/21 09:13 Dose: 40 mg Documented by: Losartan Potassium (Losartan Potassium 25 Mg Tab) 25 mg PO QAM [facility] Stop: 06/21/21 08:59 Last Admin: 05/22/21 09:14 Dose: 25 mg Documented by: Pantoprazole Sodium (Pantoprazole 40 Mg Tab) 40 mg PO QAM [facility] Stop: 06/21/21 08:59 Last Admin: 05/23/21 08:31 Dose: 40 mg Documented by: Rosuvastatin Calcium (Rosuvastatin Calcium 20 Mg Tab) 20 mg PO HS [facility] Stop: 06/20/21 20:59 Last Admin: 05/22/21 19:56 Dose: 20 mg Documented by: Sotalol HCl (Sotalol Hcl 80 Mg Tab) 80 mg PO BID [facility] Stop: 06/20/21 20:59 Last Admin: 05/23/21 09:23 Dose: 80 mg Documented by:
[2021-05-23] MEDS: ROSUVASTATIN CALCIUM 20 MG TAB PO SCH (20:35)
[2021-05-23] MEDS: EZETIMIBE 10 MG TABLET PO SCH (20:35)
--- NOTE | 2021-05-24 05:58 | Electrocardiogram Report ---
Test Reason : Blood Pressure : / mmHG Vent. Rate : 096 BPM Atrial Rate : 267 BPM P-R Int : 000 ms QRS Dur : 088 ms QT Int : 374 ms P-R-T Axes : 000 050 089 degrees QTc Int : 472 ms Atrial fibrillation Nonspecific T wave abnormality Abnormal ECG When compared with ECG of 22-MAY-2021 05:27, No significant change Confirmed by Luis Okeefe ([id number]) on 05/24/2021 5:58:25 AM Referred By: REFERRED SELF Confirmed By:Luis Okeefe
--- NOTE | 2021-05-24 06:01 | Electrocardiogram Report ---
Test Reason : Blood Pressure : / mmHG Vent. Rate : 068 BPM Atrial Rate : 068 BPM P-R Int : 198 ms QRS Dur : 080 ms QT Int : 440 ms P-R-T Axes : 059 036 096 degrees QTc Int : 468 ms Normal sinus rhythm Nonspecific T wave abnormality Abnormal ECG When compared with ECG of 23-MAY-2021 06:02, Sinus rhythm has replaced Atrial fibrillation Confirmed by Luis Okeefe ([id number]) on 05/24/2021 6:01:10 AM Referred By: REFERRED SELF Confirmed By:Luis Okeefe
[2021-05-24 07:37] LABS: BUN Creatinine Ratio 30.4 (10-20); Calcium 8.5 mg/dl (8.5-10.1); Creatinine Clr Calc Pharmacy 64.9 ml/min; Est GFR (African American) 87.3 ml/min; Est GFR (Non-African American) 75.3 ml/min; Magnesium 1.9 mg/dl (1.7-2.4); Potassium 4.1 mmol/L (3.5-5.1)
[2021-05-24] MEDS: APIXABAN 5 MG TABLET PO SCH (08:38)
[2021-05-24] MEDS: ASPIRIN 81 MG ECTAB PO SCH (08:38)
[2021-05-24] MEDS: SOTALOL HCL 80 MG TAB PO SCH (08:38)
[2021-05-24] MEDS: PANTOprazole 40 MG TAB PO SCH (08:38)
--- NOTE | 2021-05-24 12:13 | Cardiology Progress Note ---
Date of Service May 24, 2021 Assessment & Plan (1) Atrial fibrillation: (2) CAD (coronary artery disease): (3) Hypertension: Plan: Patient is a 71-year-old female with underlying ischemic heart disease and paroxysmal atrial fibrillation poorly tolerated due to elevated rate. Synchronized electrical cardioversion was only briefly successful with return to atrial fibrillation. Impression/plan: Atrial fibrillation, paroxysmal with rapid ventricular response s/p successful DCCV to NSR on antiarrhythmic therapy with sotalol 80 mg twice per day. No further arrhythmias Stable for discharge today resume losartan, discontinue metoprolol. Furosemide 40 mg p.o. 2 days/week continue all other prehospital medications as ordered Anticipate outpatient cardiology follow up in about 4 weeks. Admission and Anticipated Discharge Date Admission Date: May 21, 2021 Subjective Patient was seen and examined, chart, medications, telemetry reviewed. No complaints or issues overnight. No arrhythmias on telemetry. No dizziness or lightheadedness. Review of Systems Review of Systems: All systems reviewed & are unremarkable except as noted in Subjective Physical Exam Constitutional: WD/WN, vitals as above Eyes: PERRL, conjunctivae normal, anicteric sclerae ENMT: external ear and nose normal, oropharynx normal Neck: trachea midline, no thyromegaly Respiratory: normal respiratory effort, lungs clear to auscultation Cardiovascular: Rate/Rhythm: regular rate and regular rhythm Heart Sounds: normal S1 and normal S2; no gallop and no murmur Palpation: normal PMI Vessels: normal carotid upstroke and radial pulses present; no JVD and no carotid bruit Extremities: no edema Gastrointestinal (Abdomen): normal bowel sounds, soft, nontender, no hepatosplenomegaly Musculoskeletal: no cyanosis or clubbing, extremities motor strength 5/5 Skin: no rashes, warm and dry Neurologic: PERRL, EOMI, accommodation nl, no face palsy, no dysarthria Psychiatric: A+Ox3, euthymic affect Results & Data ([facility]) Vital Signs (Past 12 Hours) Vital Signs Temp Pulse Pulse Resp BP BP Pulse Ox 05/24/21 11:54 36.7 C 61 16 123/82 96 05/24/21 09:45 36.8 C 60 16 118/81 95 05/24/21 09:15 36.8 C 67 22 112/70 94 05/24/21 08:46 70 05/24/21 08:45 36.8 C 68 153/104 H 95 05/24/21 08:30 36.8 C 67 134/95 05/24/21 08:15 36.6 C 68 138/90 95 05/24/21 07:43 36.4 C L 15 140/87 97 05/24/21 04:05 36.5 C 70 18 110/72 94 Laboratory Results Laboratory Results - last 24 hr 05/24/21 06:56 Sodium 139 Potassium 4.1 Chloride 107 Carbon Dioxide 27 Anion Gap 5 BUN 24 H Creatinine 0.79 Est Cr Clr Drug Dosing 64.9 Est GFR ( Amer) 87.3 Est GFR (Non-Af Amer) 75.3 BUN/Creatinine Ratio 30.4 H Glucose 94 Calcium 8.5 Magnesium 1.9 ECG Additional Comments: 24-MAY-2021 08:33:11 [facility]-PC[facility] ROUTINE RETRIEVAL Normal sinus rhythm Nonspecific T wave abnormality Prolonged QT, QT corrected 489. Abnormal ECG When compared with ECG of 23-MAY-2021 07:19, No significant change was found
--- NOTE | 2021-05-24 14:17 | Hospitalist Progress Note ---
Date of Service May 24, 2021 Assessment & Plan (1) Atrial fibrillation: Plan: Recurrent atrial fibrillation Patient with history of atrial fibrillation s/p cardioversion on 05/16. Patient previously on digoxin which was discontinued post cardioversion and metoprolol reduced from 100 mg BID to 50mg BID. Presents today with 4 days of anxiety and jitteriness. Found to be in atrial fibrillation with heart rates in the low 100. Electrolytes and TSH acceptable. Evaluated by cardiology, recommending sotalol initiation. Start sotalol 80 mg BID Continue Eliquis EKG 2 hours after first sotalol dose and daily Heart rate has been around 100- 210 and in a flutter without any symptom We will continue to monitor-monitor electrolytes as well Status post cardioversion Remains in sinus rhythm at 70/min Remains in sinus rhythm with controlled rate Will be discharged home this afternoon Chronic diastolic heart failure controlled with Lasix Lasix doses have been changed to 2 times per week (2) CAD (coronary artery disease): Plan: Appears stable Continue ASA and statin, holding beta-aisha for now while initiating sotalol (3) Hypertension: Plan: BP controlled, continue losartan and furosemide Blood pressure remains stable at lower end Blood pressure is controlled (4) DVT prophylaxis: Plan: On Eliquis Admission and Anticipated Discharge Date Admission Date: May 21, 2021 Subjective 05/22/2021 Patient was seen and examined in telemetry unit She has been feeling much better and denies any symptoms Denies any palpitation, chest pain or shortness of breath 05/23/2021 The patient was seen and examined in telemetry unit She is a status post cardioversion on sotalol Heart rate is controlled at 70/min and in sinus rhythm Denies any symptoms 05/24/2021 The patient was seen and examined in telemetry unit She has been stable and her heart rate and rhythm remain controlled with sotalol She will be discharged home this afternoon Review of Systems Review of Systems: All systems reviewed and are unremarkable except as noted below Respiratory: No shortness of breath at rest Cardiovascular: Additional Comments: No palpitation and no chest pain Physical Exam Physical Exam: Sitting on a chair without any acute distress Constitutional: well developed, well nourished and + obese; not ill appearing Eyes: PERRL, conjunctivae normal, anicteric sclerae ENMT: external ear and nose normal, oropharynx normal Neck: trachea midline, no thyromegaly Respiratory: no respiratory distress Auscultation: lungs clear to auscultation bilaterally Cardiovascular: Rate/Rhythm: + irregularly irregular Heart Sounds: normal S1 and normal S2; no murmur Extremities: + edema (Trace edema bilaterally) Gastrointestinal (Abdomen): Inspection/Auscultation: normal bowel sounds; abdomen not distended Percussion/Palpation: abdomen soft; abdomen nontender Musculoskeletal: No acute arthritis in any joint Neurologic: Alert, awake and oriented x3. No focal sensory and motor deficit appreciated Results & Data Results & Data ([facility]) Vital Signs (Past 12 Hours) Vital Signs Temp Pulse Pulse Resp BP BP Pulse Ox 05/24/21 11:54 36.7 C 61 16 123/82 96 05/24/21 09:45 36.8 C 60 16 118/81 95 05/24/21 09:15 36.8 C 67 22 112/70 94 05/24/21 08:46 70 05/24/21 08:45 36.8 C 68 153/104 H 95 05/24/21 08:30 36.8 C 67 134/95 05/24/21 08:15 36.6 C 68 138/90 95 05/24/21 07:43 36.4 C L 15 140/87 97 05/24/21 04:05 36.5 C 70 18 110/72 94 Laboratory Results [facility] 05/24/21 06:56 Sodium 139 Potassium 4.1 Chloride 107 Carbon Dioxide 27 BUN 24 H Creatinine 0.79 Glucose 94 Calcium 8.5 Medications Administered Current Inpatient Medications Acetaminophen (Acetaminophen 325 Mg Tab) 650 mg PO Q4H PRN PRN Reason: Pain or Fever Stop: 06/20/21 13:54 Last Admin: 05/24/21 09:30 Dose: 650 mg Documented by: Apixaban (Apixaban 5 Mg Tablet) 5 mg PO BID COUNTS INCLUDE 234 BEDS AT THE [facility] Stop: 06/20/21 20:59 Last Admin: 05/24/21 08:38 Dose: 5 mg Documented by: Aspirin (Aspirin 81 Mg Ectab) 81 mg PO QAM COUNTS INCLUDE 234 BEDS AT [facility] Stop: 06/21/21 08:59 Last Admin: 05/24/21 08:38 Dose: 81 mg Documented by: Ezetimibe (Ezetimibe 10 Mg Tablet) 10 mg PO QPM COUNTS INCLUDE 234 BEDS AT [facility] Stop: 06/20/21 20:59 Last Admin: 05/23/21 20:35 Dose: 10 mg Documented by: Furosemide (Furosemide 40 Mg Tab) 40 mg PO QAM [facility] Stop: 06/20/21 14:29 Last Admin: 05/22/21 09:13 Dose: 40 mg Documented by: Losartan Potassium (Losartan Potassium 25 Mg Tab) 25 mg PO QAM COUNTS INCLUDE 234 BEDS AT [facility] Stop: 06/21/21 08:59 Last Admin: 05/22/21 09:14 Dose: 25 mg Documented by: Pantoprazole Sodium (Pantoprazole 40 Mg Tab) 40 mg PO QAM [facility] Stop: 06/21/21 08:59 Last Admin: 05/24/21 08:38 Dose: 40 mg Documented by: Rosuvastatin Calcium (Rosuvastatin Calcium 20 Mg Tab) 20 mg PO HS [facility] Stop: 06/20/21 20:59 Last Admin: 05/23/21 20:35 Dose: 20 mg Documented by: Sotalol HCl (Sotalol Hcl 80 Mg Tab) 80 mg PO BID [facility] Stop: 06/20/21 20:59 Last Admin: 05/24/21 08:38 Dose: 80 mg Documented by:
--- NOTE | 2021-05-24 19:00 | Electrocardiogram Report ---
Test Reason : Blood Pressure : / mmHG Vent. Rate : 075 BPM Atrial Rate : 075 BPM P-R Int : 206 ms QRS Dur : 084 ms QT Int : 438 ms P-R-T Axes : 062 060 087 degrees QTc Int : 489 ms Normal sinus rhythm Nonspecific T wave abnormality Prolonged QT Abnormal ECG When compared with ECG of 23-MAY-2021 07:19, No significant change was found Confirmed by Victor Hugo Quarles ([id number]) on 05/24/2021 7:00:20 PM Referred By: REFERRED SELF Confirmed By:Konstantin Quarles
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
--- NOTE | 2021-05-25 07:43 | Discharge Summary ---
Date of Service May 25, 2021 Admission HPI Per Admitting Provider 71-year-old female with PMH atrial fibrillation anticoagulated on Eliquis s/p recent cardioversion on 05/16, hypothyroidism, CAD s/p CABG in 2018, HTN, history of splenectomy, and other problems listed below who presents the ED for evaluation of feelings of being in atrial fibrillation. Patient underwent cardioversion on 05/16 and reports that 2 days later, she developed feelings of anxiety and jitteriness. Patient was referred back to the ED today. She was found to be in atrial fibrillation with rates in the low 100s. Patient also reports associated shortness of breath. She has had some lightheadedness and dizziness however no syncopal event. No chest pain. Denies abdominal pain, nausea, vomiting, diarrhea. No urinary symptoms. Denies any other recent illnesses, fevers, chills. In the ED, patient received metoprolol 5 mg IV x doses. She was evaluated by cardiology who is recommending sotalol initiation. Admission Exam Per Admitting Provider Constitutional: WD/WN, vitals as above Eyes: PERRL, conjunctivae normal, anicteric sclerae ENMT: external ear and nose normal, oropharynx normal Respiratory: normal respiratory effort, lungs clear to auscultation Cardiovascular: Rate/Rhythm: + tachycardic and + irregularly irregular Vessels: normal peripheral pulses Extremities: + edema (Trace edema BLE) Gastrointestinal (Abdomen): normal bowel sounds, soft, nontender, no hepatosplenomegaly Musculoskeletal: no cyanosis or clubbing, extremities motor strength 5/5 Skin: no rashes, warm and dry Neurologic: PERRL, EOMI, accommodation nl, no face palsy, no dysarthria Psychiatric: A+Ox3, euthymic affect Principal Diagnosis Atrial fibrillation with RVR, status post cardioversion and is on sotalol, hypertension Discharge Exam Sitting on a chair without any acute distress Constitutional well developed, well nourished and + obese; not ill appearing Eyes PERRL, conjunctivae normal, anicteric sclerae ENMT external ear and nose normal, oropharynx normal Neck trachea midline, no thyromegaly Respiratory no respiratory distress Auscultation: lungs clear to auscultation bilaterally Cardiovascular Rate/Rhythm: + irregularly irregular Heart Sounds: normal S1 and normal S2; no murmur Extremities: + edema (Trace edema bilaterally) Gastrointestinal (Abdomen) Inspection/Auscultation: normal bowel sounds; abdomen not distended Percussion/Palpation: abdomen soft; abdomen nontender Discharge Data Allergies Allergy/AdvReac Type Severity Reaction Status Date / Time No Known Allergies Allergy Verified 05/21/21 11:53 Consultations 05/21/21 12:00 ED Decision to Admit Stat 05/21/21 12:15 Consult Cardiology Stat 05/21/21 13:55 Consult Cardiology Routine 05/23/21 07:15 Consult Anesthesiology Routine Procedures Performed Operation Date: 05/23/21 07:20 Actual Procedures p Cardioversion - Shankar Golden MD Hospital Course (1) Atrial fibrillation: Recurrent atrial fibrillation Patient with history of atrial fibrillation s/p cardioversion on 05/16. Patient previously on digoxin which was discontinued post cardioversion and metoprolol reduced from 100 mg BID to 50mg BID. Presents today with 4 days of anxiety and jitteriness. Found to be in atrial fibrillation with heart rates in the low 100. Electrolytes and TSH acceptable. Evaluated by cardiology, recommending sotalol initiation. Start sotalol 80 mg BID Continue Eliquis EKG 2 hours after first sotalol dose and daily Heart rate has been around 100- 210 and in a flutter without any symptom We will continue to monitor-monitor electrolytes as well Status post cardioversion Remains in sinus rhythm at 70/min Remains in sinus rhythm with controlled rate Will be discharged home this afternoon Chronic diastolic heart failure controlled with Lasix Lasix doses have been changed to 2 times per week (2) CAD (coronary artery disease): Appears stable Continue ASA and statin, holding beta-aisha for now while initiating sotalol (3) Hypertension: BP controlled, continue losartan and furosemide Blood pressure remains stable at lower end Blood pressure is controlled (4) DVT prophylaxis: On Eliquis Total Time Total Time Spent Total Time Spent (In Minutes): 35 minutes Discharge Plan Discharge Items Patient Disposition: Home - Self-Care Reason For Visit: RECURRENT A. FIB Discharge Diagnosis: Atrial fibrillation with RVR, status post cardioversion and is on sotalol, hypertension Condition on Discharge: Good Activity: Resume your previous activity Non-emergency contact: Primary Care Provider Call non-emergency contact if: you have any medication questions and your symptoms worsen Follow-up/Referrals: Eleonora Gonsalez MD [Primary Care Provider] - (Date & Time 05/27/2021 3:00 PM Provider Eleonora Gonsalez MD Department Family Medicine [facility] ) Diet: Heart Healthy Addtl Attending Provider Instructions: Please take precautions to avoid fall Take your medications as advised [facility] will make an appointment for follow-up Please give appointment with your primary care provider Your Lasix doses have been changed to 2 days/week Pending Studies at Discharge: No Stand-Alone Forms: [facility], Smoking Cessation Medications and DC Order Prescriptions: New sotalol 80 mg Tablet 80 mg PO BID 30 Days Qty: 60 RF: 0 Continued losartan 25 mg tablet 25 mg PO QAM RF: 0 ezetimibe [Zetia] 10 mg tablet 10 mg PO QPM RF: 0 pantoprazole 40 mg tablet,delayed release (DR/EC) 40 mg PO QAM RF: 0 aspirin [Aspirin Low Dose] 81 mg Tablet,Delayed Release (Dr/Ec) 81 mg PO QAM RF: 0 nitroglycerin [Nitrostat] 0.4 mg Tablet, Sublingual 1 tab Sublingual UD PRN (Reason: Chest Pain) RF: 0 multivitamin Tablet 1 tab PO QAM RF: 0 cholecalciferol (vitamin D3) [Vitamin D3] 5,000 unit Tablet 5,000 unit PO QAM RF: 0 coQ10 (ubiquinol) 200 mg Capsule 200 mg PO QAM RF: 0 Eliquis 5 mg Tablet 5 mg PO BID RF: 0 mometasone 50 mcg/actuation [place],Non-Aerosol 2 spray INTRANASAL DAILY PRN (Reason: Congestion) RF: 0 rosuvastatin 20 mg tablet 20 mg PO HS RF: 0 Changed furosemide [Lasix] 40 mg Tablet 40 mg PO Q3D Qty: 0 RF: 0 Discontinued metoprolol tartrate 100 mg Tablet 50 mg PO BID Qty: 0 RF: 0 Discharge Orders: Discharge Order (Routine); Ordered 05/24/21 Ordered By: Vijay Fong Admission Data Admit Date/Time: 05/21/21 12:31 Attending Provider: Vijay Fong Admit Provider: Jessie Zamarripa Primary Care Provider: Eleonora Gonsalez Other Providers: Shankar Golden ; Jessie Zamarripa ; Ros Pan ; Brooke Rader ; Iman Gonsalez ; Kassandra Hatch ; Filiberto Morelos ; Winston Selby ; Christiano Dey ; Wiley Lombardi ; Kira Lombardi ; Desmond Abarca ; Lynne Hawthorne ; Justyn Aquino ; Soto Fletcher ; Jelani Nur ; Bart Chen ; Viri Pedroza ; Nish Hurt ; Alejandra Saha ; Idalia Hurt ; Jigar Miller ; Nataliia Barbosa ; Stan Zapien ; Kelly Latham ; Capri Molina ; Nataliia Garcia. ; Yolanda Oshea ; Gallito Lemus ; Annetta Bee ; Deepika Nice ; Olena Briseno ; Abigail Posada ; Conner Posada V ; Mark Antunez A ; Brooke Aguila ; Joseph Ahn ; Cecily Maciel ; Ashley Perez ; Conner Headley ; Tony Pedroza ; Lamine Jonas ; Prachi Zamora ; Alicia Andersen ; Conner Portillo ; Olena Champagne ; Macario Hernandez ; Harvey Chen ; Sophia Lyn ; Jason Nowak ; Florian Guardado ; Julio César Stein ; Beka Rincon ; Jason Tabor ; Filiberto Gonsales Jr ; Babita Reyes ; Kaleigh Mendoza Other Interventions: Discharge Summary Assessment (RN) Last Done: 05/24/21 14:24
== END 2021-05-24 15:20 | disposition home or self-care (01) | DRG 309 ==
LOC: ED 10:14 → SUATTDRO 12:31 → 2S 13:39